=== PATIENT | male | born 1995 | race Two or more races ===

== ENCOUNTER 2018-08-22 21:24 | Emergency (ER) | payer SELFPAY ==
[~2018-08-22] VITALS: Ht 170.2 cm; Wt 68.0 kg
[2018-08-22 21:41] VITALS: BP 125/82
--- NOTE | 2018-08-22 21:41 | NUR ---
ED Nurse Note: Pt arrived ED from Home, c/o left testicle mass and pain 8/10 for 2 days. Pt is A/O X4. Vital signs stable at this time, waitng for orders.
--- NOTE | 2018-08-22 22:13 | NUR ---
X-ray notified to call [facility] for scrotal ultrasound.
[2018-08-22 22:39] LABS: BILIRUBIN, URINE NEGATIVE (NEGATIVE); COLOR,URINE PALE YELLOW; GLUCOSE, URINE (UA) NEGATIVE (NEGATIVE); KETONES,URINE NEGATIVE (NEGATIVE); LEUKOCYTE ESTERASE ,URINE 2+ (NEGATIVE); NITRITE,URINE NEGATIVE (NEGATIVE); PH,URINE 7 (4.5-8.0); PROTEIN,URINE NEGATIVE (NEGATIVE); UROBILINOGEN,URINE NORMAL MG/DL (0.0-1.0)
[2018-08-22 22:42] LABS: APPEARANCE,URINE SLIGHTLY CLOUDY
--- NOTE | 2018-08-22 23:00 | Diagnostic Imaging Report ---
EXAM: US Scrotum CLINICAL HISTORY: PAIN TECHNIQUE: Real-time ultrasound of the scrotum with color Doppler and image documentation. COMPARISON: No relevant prior studies available. FINDINGS: Right testicle: Measures 4.6 x 4.1 x 2.6 cm. No mass. No torsion. Left testicle: Measures 4.5 x 3.4 x 2.7 cm. No mass. No torsion. Epididymides: Heterogeneous thickening of the left epididymis with mild increased vascular flow. Findings may represent acute epididymitis. Scrotum: Small left hydrocele. Question left varicocele. IMPRESSION: Heterogeneous thickening of the left epididymis with mild increased vascular flow. Findings may represent acute epididymitis.
[2018-08-22] MEDS ORDERED: IBUPROFEN600 MG ORAL (23:57)
[2018-08-22] MEDS ORDERED: DOXYCYCLINE MO100 MG ORAL (23:57)
[2018-08-23] MEDS ORDERED: Lidocaine 1% MPF 10mg/ml 5ml INJ ONE
[2018-08-23] MEDS ORDERED: Azithromycin 250mg tab ORAL ONE
--- NOTE | 2018-08-23 00:01 | NUR ---
ED Nurse Note: Meds given as ordered.
[2018-08-23 00:08] VITALS: BP 123/81
--- NOTE | 2018-08-23 00:08 | NUR ---
ER DISCHARGE NOTE: Patient is cleared to be discharged per Dr. Conroy. Meds given as ordered. Pt is A/Ox4 on room air with stable vital signs, pt was given dc and prescription instructions, pt was able to verbalize understanding, pt id band removed. pt is able to ambulate with steady gait and pt took all belongings. Accompanied by his family.
--- NOTE | 2018-08-23 01:28 | Emergency Room Report ---
History of Present Illness General Chief Complaint: Male Urogenital Problems Source: Patient Present Illness HPI 23-year-old male presents ED complaining of left testicular pain. Started 2 days ago. States it is swollen. Was told it may be a hernia. Pain is dull, 8 out of 10, nonradiating. Denies discharge. Denies dysuria or hematuria. Denies fevers or chills. No other aggravating relieving factors. Denies any other associated symptoms Allergies: Coded Allergies: No Known Allergies (Unverified , 08/22/18) Patient History Past Medical History: none Past Surgical History: none Pertinent Family History: none Social History: Denies: smoking, alcohol use, drug use Immunizations: UTD Reviewed Nursing Documentation: PMH: Agreed; PSxH: Agreed Nursing Documentation-PMH Past Medical History: No Stated History Review of Systems All Other Systems: negative except mentioned in HPI Physical Exam Vital Signs Date Time Temp Pulse Resp B/P (MAP) Pulse Ox O2 Delivery O2 Flow Rate FiO2 08/22/18 21:35 98.1 64 14 129/80 99 08/22/18 21:41 Room Air Sp02 EP Interpretation: reviewed, normal General Appearance: no apparent distress, alert, GCS 15, non-toxic Head: normocephalic Eyes: bilateral eye normal inspection, bilateral eye PERRL ENT: normal ENT inspection Neck: normal inspection Respiratory: normal inspection Cardiovascular #1: normal inspection Gastrointestinal: normal bowel sounds, non tender, soft, non-distended, no guarding, no rebound Rectal: deferred Genitourinary: no CVA tenderness, other - L scrotal pain/swelling Musculoskeletal: normal inspection Neurologic: alert, oriented x3, responsive, motor strength/tone normal, sensory intact, speech normal Psychiatric: normal inspection Skin: normal inspection Lymphatic: normal inspection Medical Decision Making Diagnostic Impression: Primary Impression: Epididymitis ER Course Hospital Course 23-year-old male presents to ED with left testicular pain/swelling. Differential diagnoses include: hydrocele, varicocele, epididymitis, testicular torsion Clinical course Patient placed on stretcher. After initial history and physical I ordered UA and scrotal ultrasound. UA- + bacteria US shows no torsion, L epididymitis Discussed findings with patient. Documents unprotected sex a few weeks ago. Patient given Rocephin and azithromycin here. Safe for discharge and close outpatient follow-up. We'll provide referrals Diagnosis - epididymitis stable and discharged to home with prescription for doxycycline. Followup with PMD. Return to ED if symptoms recur or worsen Labs Test 08/22/18 22:30 Urine Color Pale yellow Urine Appearance Slightly cloudy Urine pH 7 (4.5-8.0) Urine Specific [place] 1.010 (1.005-1.035) Urine Protein Negative (NEGATIVE) Urine Glucose (UA) Negative (NEGATIVE) Urine Ketones Negative (NEGATIVE) Urine Blood Negative (NEGATIVE) Urine Nitrite Negative (NEGATIVE) Urine Bilirubin Negative (NEGATIVE) Urine Urobilinogen Normal MG/DL (0.0-1.0) Urine Leukocyte Esterase 2+ (NEGATIVE) Urine RBC 0 /HPF (0 - 0) Urine WBC 20-30 /HPF (0 - 0) Urine Squamous Epithelial Cells Occasional /LPF Urine Bacteria Moderate /HPF (NONE) CT/MRI/US Diagnostic Results CT/MRI/US Diagnostic Results : Imaging Test Ordered: Scrotal US Impression Heterogeneous thickening of the left epididymis with mild increased vascular flow. Findings may represent acute epididymitis. Last Vital Signs Date Time Temp Pulse Resp B/P (MAP) Pulse Ox O2 Delivery O2 Flow Rate FiO2 08/23/18 00:08 98.1 77 14 123/81 99 Room Air Status: improved Disposition: HOME, SELF-CARE Condition: Stable Scripts Ibuprofen* (MOTRIN*) 600 Mg Tablet 600 MG ORAL Q8H PRN for For Pain, #30 TAB 0 Refills Prov: Gaudencio Conroy MD 08/22/18 Doxycycline Monohydrate* (DOXYCYCLINE MONOHYDRATE*) 100 Mg Capsule 100 MG ORAL Q12H, #14 CAP 0 Refills Prov: Gaudencio Conroy MD 08/22/18 Referrals: NOT CHOSEN IPA/,REFERRING (PCP) [facility]yan Dai [facility]. [facility] Patient Instructions: Epididymectomy, Care After Gaudenico Conroy MD Aug 23, 2018 01:28
== END 2018-08-23 00:08 | disposition home or self-care (01) ==
LOC: EMR 22:12
DX: N45.1 Epididymitis (principal)
CPT/HCPCS: 76870; 81003; 87086; 96372; 99284; J0696